=== PATIENT | female | born 1985 | race Two or more races ===

== ENCOUNTER 2016-09-18 14:17 | Emergency (ER) | payer SELFPAY ==
[~2016-09-18] VITALS: Ht 162.6 cm; Wt 55.3 kg
--- NOTE | 2016-09-18 14:30 | NUR ---
DR JIMENEZ AT THE BEDSIDE FOR EVAL AND EXAM.
[2016-09-18 14:36] VITALS: BP 118/79
--- NOTE | 2016-09-18 14:36 | NUR ---
Patient discharged to home in stable conditon. Written and verbal after care instructions given. Patient verbalizes understanding of instructions.
== END 2016-09-18 14:39 | disposition home or self-care (01) ==
LOC: ER 14:17
DX: J02.0 Streptococcal pharyngitis (principal)
CPT/HCPCS: A4663